=== PATIENT | male | born 1965 | race Caucasian/White ===

== ENCOUNTER 2025-04-30 07:55 | Outpatient (CLI) | payer OTHER, SELFPAY ==
--- OUTSIDE RECORDS SUMMARY | 2025-04-30 07:59 | XMS_ITS | Clinical Summary ---
Author Organization [facility] Address [address] [place] [address] Care Team Providers Care Sulphate Tester Name Role Phone Unavailable Primary Care Provider Unavailabl e Source Comments [facility],non-owned Affiliates and Associated Physician Practices is amultiple site organization consisting of ambulatory clinics and hospital sitesin [place], [place], [place] and [place]. This disclosure is being madepursuant to the Care Everywhere program and may not contain all information available regarding this patient. Last updated 18.[facility] Social History Tobacco Use Types Packs/Day Years Used Date Smoking Tobacco: Never Assessed Sex and Gender Information Value Date Recorded Sex Assigned at Not on file Legal Sex Male 5:00 PM CDT Gender Identity Not on file Sexual Orientation Not on file Plan of Treatment Health Maintenance Due Date Last Done Comments COLOGUARD (AGES 45-75) - COL ON CA SCREENING 1964 COLON MONITORING 1964 COLONOSCOPY - COLON CA SCREENING 1964 CT COLONOGRAPHY - COLON CA SCREENING 1964 Colorectal Cancer Screening 1964 FIT - COLON CA SCREENING 1964 FLEX SIG - COLON CA SCREENING 1964 LIPID TESTING 1964 HIV SCREENING 1979 HEPATITIS C SCREENING 05/08/1982 DTAP/TDAP/TD VACCINES (1 - Tdap) 1983 PNEUMOCOCCAL VACCINE 50+ (1 of 1 - PCV) 2014 ZOSTER VACCINE (1 of 2) 2014 COVID-19 VACCINE ( - 2023-2 5 season) 2024 DEPRESSION SCREENING 09/17/2024 INFLUENZA VACCINE (#1) 2025 Respiratory Syncytial Virus (RSV) Vaccine Pt: or over 60 yrs (1 - 1-dose 75+ series) 2039 HEPATITIS B VACCINE Aged Out No longe r eligible based on patient's age to complete this topic HIB VACCINE Aged Out No longer eligi ble based on patient's age to complete this topic HPV VACCINE Aged Out No longer eligi ble based on patient's age to complete this topic MENINGOCOCCAL (Group B) VACC INE SHARED DECISION-MAKING Aged Out No longer eligibl e based on patient's age to complete this topic MENINGOCOCCAL GROUPS A/C/Y/W VACCINE Aged Out No longer eligible b ased on patient's age to complete this topic Insurance
--- OUTSIDE RECORDS SUMMARY | 2025-04-30 07:59 | XMS_ITS | Encounter Summary ---
Author Organization [facility] Address [address] [place] [address] Care Team Providers Care Recreational Counselor Name Role Phone Unavailable Primary Care Provider Unavailabl e Encounter Details Date Type Department Care Team (Late st Contact Info) Description 04/10/2023 Lab Requisition [facility] - Derm[facility] Lab [address], [place] [id number] Christine Hernandez PA-C [address] [place] [phone] Neoplasm of uncertain behavior of skin Social History Tobacco Use Types Packs/Day Years Used Date Smoking Tobacco: Never Assessed Sex and Gender Information Value Date Recorded Sex Assigned at Not on file Legal Sex Male 5:00 PM CDT Gender Identity Not on file Sexual Orientation Not on file documented as of this encounter Plan of Treatment Not on file documented as of this encounter Procedures Procedure Name Priority Date/Time Associated Diagnosis Comments DERMATOPATHOLOGY Routine 04/10/2023 12:0 0 AM CDT Neoplasm of uncertain behavior of skin documented in this encounter Results * DERMATOPATHOLOGY (04/10/2023 12:00 AM CDT) Case Report Dermatopathology Report Case: [id number] Authorizing Provider: Christine Hernandez, Collected: 04/10/2023 12:00 AM HUBER Ordering Location: [facility] Lab Received: 04/11/2023 02:15 PM Pathologist: Izzy Huff MD Specimen: Skin, left nasal tip 4:06 PM CDT DERMATOPATHOLOGY LABORATORY Final Diagnosis Specimen A. SKIN, left nasal tip: HYPERPLASTIC (HYPERTROPHIC) ACTINIC KERATOSIS; EXTENDING TO THE BASE OF THE SPECIMEN (L57.0) (see microscopic description and comment) 3 4:06 PM CDT DERMATOPATHOLOGY LABORATORY at 1606 CDT Clinical History Basal Cell Carcinoma 3 4:06 PM CDT DERMATOPATHOLOGY LABORATORY Gross Description Specimen A: Received is one formalin filled container labeled with the patient's name and designated left nasal tip. The specimen consists of a shave biopsy measuring 6x6x1 mm. Jar 0. 3 4:06 PM CDT DERMATOPATHOLOGY LABORATORY Microscopic Description Specimen A. SKIN, left nasal tip: There is hyperkeratosis alternating with parakeratosis. There is epidermal hyperplasia with disorderly maturation of keratinocytes with nuclear pleomorphism confined to the lower half of the epidermis. This process extends to the base of the specimen. COMMENT: An underlying carcinoma cannot be ruled out. 3 4:06 PM CDT DERMATOPATHOLOGY LABORATORY Disclaimer An external and internal positive and negative controls are appropriate for the histochemical, immunohistochemical and immunofluorescence stain(s) in this case (if any), except where stated explicitly. The performance characteristics of the stain(s) cited in this report were developed and its performance characteristic determined by the Dermatopathology Laboratory at [facility], directed by Dr. Penny Sin. These tests need not be, and therefore are not, approved by the [place] Food and Drug Administration. The tests are used for clinical purposes. Billing Codes Specimen Charges Stain Charges 37361 1 3 4:06 PM CDT DERMATOPATHOLOGY LABORATORY Embedded Images 3 4:06 PM CDT DERMATOPATHOLOGY LABORATORY Pathology/Cytolog y TISSUE SPECIMEN FROM SKIN / Unknown 04/10/2023 04/11/2023 2:15 PM CDT Christine Hrenandez PA-C LAB - PATHOLOGY/CYTO LOGY ORDERABLES Final Result DERMATOPATHOLOGY LABORATORY [facility] - Department of Dermatology [address], [address] [phone] documented in this encounter Visit Diagnoses Diagnosis Neoplasm of uncertain behavior of skin documented in this encounter
--- OUTSIDE RECORDS SUMMARY | 2025-04-30 07:59 | XMS_ITS | Clinical Summary ---
Author Organization [facility] Address [address] [place] [id number] Care Team Providers Care Sheet Metal Layout Mechanic Name Role Phone Unavailable Primary Care Provider Unavailabl e Social History Tobacco Use Types Packs/Day Years Used Date Smoking Tobacco: Never Assessed Sex and Gender Information Value Date Recorded Sex Assigned at Not on file Legal Sex Male 7:41 PM CDT Gender Identity Not on file Sexual Orientation Not on file Plan of Treatment Health Maintenance Due Date Last Done Comments Colorectal Cancer Screening Colonoscopy (10 Years) 1964 Annual Physical 1967 Hepatitis C 1982 DTaP, Tdap and Td Vaccines ( 1 - Tdap) 1983 Pneumococcal Vaccine: 50+ Ye ars (1 of 1 - PCV) 2014 Zoster Vaccines (1 of 2) 2014 COVID-19 Vaccine ( - 2023-2 5 season) 2024 RSV Immunization or 60+ Years (1 - 1-dose 75+ series) 2039 Meningococcal B Vaccine Aged Out No l onger eligible based on patient's age to complete this topic Meningococcal Vaccine Aged Out No brent reginald eligible based on patient's age to complete this topic RSV Immunizations Under 20 Months Aged Out No longer eligible based on patient's age to complete this topic
--- OUTSIDE RECORDS SUMMARY | 2025-04-30 07:59 | XMS_ITS | Continuity of Care Document ---
Author Name [facility] Organization [facility] Care Team Providers Care Business Office Director Name Role Phone [facility] Unavailable Unavailable Problems Combined list of problems from Department of Defense and Veterans Affairs facilities. It does not include entries that were removed or entered in error. 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 DoD HEARING LOSS Active Condition DoD X-Ray Active Condition DoD insomnia Active Condition DoD X-Ray Chest Lungs Solitary Pulmonary Nodule (___ cm) Active Condition DoD visit for: services physical care home Active Condition DoD joint pain, localized in the shoulder Active Condition DoD CERVICALGIA Active Condition DoD joint stiffness of the shoulder Active Condition DoD NECK SPRAIN Inactive Condition DoD cough Active Condition DoD PRESBYOPIA Active Condition DoD ASTIGMATISM Active Condition 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 [facility] visit for: services flight physical Active Condition DoD HERPES ZOSTER (SHINGLES) Active Condition - slow recovery , still w/ acute pain- pt completed 7 d course of Valtrex- will give pt 5 d course of Prednisone to prevent post-herpetic neuralgia- will also refill Vicodin- discussed that shingles is only transmittable by skin to skin contact, and those at risk are people who have not had chickenpox or the varicella shot DoD PATELLOFEMORAL SYNDROME Active Condition DoD joint pain, localized in the knee Active Condition [facility] visit for: administrative purpose Active Condition [facility] visit for: laboratory Inactive Condition Pt instructed o n fasting 10-12 hours w/ nothing except water prior to having the lab test completed. Pt instructed to go directly to the lab in 6 mths to have repeat test done. Pt verbalized understanding. DoD visit for: screening exam hypertension Active Condition Pt was here for his 4/5 bp check. Pts bp was 127/82 on his right arm using the adult size cuff. Pt stated he was feeling fine today. Pt denied any lightheadedness, vertigo, chest pain, tingling in left arm or fingers, n/v and blurry vision. Pt was counseled on procedures for an emergency. DoD Blood Pressure Isolated Elevated Active Condition DoD Preventive Medicine Estab Patient Checkup Adult 40-64 Inactive Condition DoD ACUTE BRONCHITIS Inactive Condition DoD visit for: services physical Inactive Condition DoD CHALAZION LEFT EYE Active Condition I mproved with Dicloxicillin and warm compresses DoD CHALAZION Active Condition L upper lid DoD STYE (HORDEOLUM EXTERNUM) Inactive Condition Renewed drops. Optometry referral as may need lanced due to persistence. DoD ROSACEA Active Condition DoD WARTS PLANTAR Active Condition Wart p ared w/ 15 blade and then treated w/ cryo freeze and thaw x 2. Patient aware of healing process. F/u in two weeks for repeat treatment; expect will need at least 1-2 more treatments w/ large size of lesion. DoD TENDONITIS SHOULDER Active Condition HANDOUT GIVEN DISCUSSING SHOULDER EXERCISES. WIILL TRY SYMPTOMATIC CARE AND REASSESS DoD Other Physical Therapy Active Condition DoD NONALLOPATHIC LESIONS LUMBAR Active Condition DoD Patient Education - Injury Prevention Inactive Condition DoD LUMBAGO Active Condition DoD Medications Combined list of outpatient medications from Department of Defense and Veterans Affairs facilities.Medications provided include 1) outpatient medications from the last 15 months, and 2) patient-reported medications. Medication Details Route Status Patient Instructions Prescription Expires Prescription Number Last Dispense Date Ordering Provider Order Date Order Qty Source clobetasol 0.05% topical ointment APPLY TO AFFECTED AREAS TWICE A DAY FOR 2 TO 3 WEEKS THEN DAILY NEEDED FOR FLARES., # 60 g, 3 total refill(s ), Acute Complet ed 12/27/2023 3 2023 60.0 Ambulat ory Pharmac y rosuvastati n 5 mg tablet 5 mg, Oral, Daily, # 90 EA, 2 total refill(s ), Hard Stop Oral (given by mouth) Complet ed 02/19/2024 3 2023 90.0 Ambulat ory Pharmac y TALTZ AUTOINJECTO R (3 PACK) (ixekizumab ), 80 MG/ML, AUTO INJCT, SUBCUT, NOE KIRK [employer] 1 ml SYRINGE Cancele d [id number] : 2023 0 Pharmac y Data Transac tion Service Facilit y TALTZ AUTOINJECTO R (3 PACK) (ixekizumab ), 80 MG/ML, AUTO INJCT, SUBCUT, NOE [employer] 1 ml SYRINGE Cancele d [id number] : 2023 0 Pharmac y Data Transac tion Service Facilit y TALTZ AUTOINJECTO R (3 PACK) (ixekizumab ), 80 MG/ML, AUTO INJCT, SUBCUT, NOE [employer] 1 ml SYRINGE Active [id number] 2023 3 Pharmac y Data Transac tion Service Facilit y TALTZ AUTOINJECTO R (3 PACK) (ixekizumab ), 80 MG/ML, AUTO INJCT, SUBCUT, NOE [employer] 1 ml SYRINGE Active [id number] 2023 3 Pharmac y Data Transac tion Service Facilit y urea 40% topical cream APPLY TO FEET ONCE DAILY FOR 2 TO 3 MONTHS, THEN NEEDED, # 199 g, 2 total refill(s ), Acute Complet ed 12/27/2023 3 2023 199.0 Ambulat ory Pharmac y Allergies, Adverse Reactions, Alerts Combined list of allergies from Department of Defense and Veterans Affairs facilities. It does not include entries that were removed or entered in error. Substance Category Reaction Severity Reaction type Status Date Reported Comments Source NO OUTPUT FOR NCID [id number] Drug allergy (disorder) active 04/17/2008 [facility] [place] ([facility]) Immunizations Combined list of available immunizations from the Department of Defense and Veterans Affairs facilities. Immunization Series Date Given Administered By Site Reaction Lot Number CVX Code Drug Layout Designer Status Comments Source COVID Vaccine Moderna 2020 Dinh t Arm [id number] complet ed COVID Vaccine Moderna 09/02/21 Given Ambulat ory Pharmac y COVID Vaccine Moderna 2020 [id number] complet ed COVID Vaccine Moderna 09/02/21 Given Ambulat ory Pharmac y SARS-COV-2 (COVID-19) vaccine, mRNA, spike protein, LNP, preservative free, 100 mcg or 50 mcg dose 3 2020 Unknown, Provider [id number] 207 Moderna [employer] (MOD) complet ed SARS-COV- 2 (COVID-19 ) vaccine, mRNA, spike protein, LNP, preservat hina free, 100 mcg or 50 mcg dose DoD COVID Vaccine Moderna 2020 zzRig ht Arm [id number] 207 complet ed COVID Vaccine Moderna 10/29/20 Given Ambulat ory Pharmac y COVID Vaccine Moderna 2020 [id number] complet ed COVID Vaccine Moderna 10/29/20 Given Ambulat ory Pharmac y SARS-COV-2 (COVID-19) vaccine, mRNA, spike protein, LNP, preservative free, 100 mcg or 50 mcg dose 2 2020 Unknown, Provider [id number] 207 Moderna [employer] (MOD) complet ed SARS-COV- 2 (COVID-19 ) vaccine, mRNA, spike protein, LNP, preservat hina free, 100 mcg or 50 mcg dose DoD COVID Vaccine Moderna 2020 zzRig ht Arm [id number] 207 complet ed COVID Vaccine Moderna 10/01/20 Given Ambulat ory Pharmac y COVID Vaccine Moderna 2020 [id number] complet ed COVID Vaccine Moderna 10/01/20 Given Ambulat ory Pharmac y SARS-COV-2 (COVID-19) vaccine, mRNA, spike protein, LNP, preservative free, 100 mcg or 50 mcg dose 1 2020 Unknown, Provider [id number] 207 Moderna [place], Inc[employer] (MOD) complet ed SARS-COV- 2 (COVID-19 ) vaccine, mRNA, spike protein, LNP, preservat hina free, 100 mcg or 50 mcg dose DoD influenza, seasonal, injectable 2010 zzLef t Arm [id number] 141 sanofi pasteur complet ed influenza , seasonal, injectabl e 06/28/11 Given Ambulat ory Pharmac y influenza, seasonal, injectable 2010 [id number] 141 sanofi pasteur complet ed influenza , seasonal, injectabl e 06/28/11 Given Ambulat ory Pharmac y Influenza, seasonal, injectable 1 2010 Unknown, Provider [id number] 141 Sanofi Pasteur ([facility]) complet ed Influenza , seasonal, injectabl e DoD Novel influenza-H1N 1-09, injectable 2009 [id number] 1 127 Novartis Pharm[employer]ica ls complet ed Novel influenza -[id number], injectabl e 10/05/09 Given Ambulat ory Pharmac y Novel influenza-H1N 1-09, injectable 2009 [id number] 1 127 Novartis Pharmaceut[employer] ls complet ed Novel influenza -[id number], injectabl e 10/05/09 Given Ambulat ory Pharmac y Novel influenza-H1N 1-09, injectable 1 2009 [id number] 1 127 Novartis Pharmaceutica l Kirsty. (NOV) complet ed Novel influenza -[id number], injectabl e DoD influenza virus vaccine, live 2008 [id number] 111 Medimmune Inc complet ed influenza virus vaccine, live 07/12/09 Given Ambulat ory Pharmac y influenza virus vaccine, live 2008 [id number] 111 [employer] Inc complet ed influenza virus vaccine, live 07/12/09 Given Ambulat ory Pharmac y influenza virus vaccine, live, attenuated, for intranasal use 1 2008 [id number] 111 [employer] (MED) complet ed influenza virus vaccine, live, attenuate d, for intranasa l use DoD hepatitis B adult vaccine 2008 [id number] 0AA 43 GlaxoSmithKli ne complet ed hepatitis B adult vaccine 12/22/08 Given Ambulat ory Pharmac y anthrax vaccine 2008 [id number] [employer] complet ed anthrax vaccine 12/22/08 Given Ambulat ory Pharmac y anthrax vaccine 2008 [id number] [employer] complet ed anthrax vaccine 12/22/08 Given Ambulat ory Pharmac y hepatitis B adult vaccine 2008 [id number] 0aa 43 GlaxoSmithKli ne complet ed hepatitis B adult vaccine 12/22/08 Given Ambulat ory Pharmac y anthrax vaccine 4 2008 [id number] 24 [employer] [place] (MIP) complet ed anthrax vaccine DoD hepatitis B vaccine, adult dosage 3 2008 [id number] 0AA 43 [place] (SKB) complet ed hepatitis B vaccine, adult dosage DoD tetanus, diphtheria, acellular pertu is 2007 [id number] 115 sanofi pasteur complet ed tetanus, diphtheri a, acellular pertussis 08/14/08 Given Ambulat ory Pharmac y tetanus, diphtheria, acellular pertu is 2007 [id number] 115 sanofi pasteur complet ed tetanus, diphtheri a, acellular pertussis 08/14/08 Given Ambulat ory Pharmac y tetanus toxoid, reduced diphtheria toxoid, and acellular pertu is vaccine, adsorbed 0 2007 [id number] 115 Sanofi Pasteur (PMC) complet ed tetanus toxoid, reduced diphtheri a toxoid, and acellular pertussis vaccine, adsorbed DoD hepatitis B adult vaccine 2007 [id number] 0AA 43 GlaxoSmithKli ne complet ed hepatitis B adult vaccine 07/24/08 Given Ambulat ory Pharmac y hepatitis B adult vaccine 2007 [id number] 0AA 43 GlaxoSmithKli ne complet ed hepatitis B adult vaccine 07/24/08 Given Ambulat ory Pharmac y hepatitis B vaccine, adult dosage 2 2007 [id number] 0AA 43 [employer] (SKB) complet ed hepatitis B vaccine, adult dosage DoD vaccinia (smallpox) vaccine 2007 VV04-00 3A 75 [employer] complet ed vaccinia (smallpox ) vaccine 06/18/08 Given Ambulat ory Pharmac y influenza virus vaccine, live 2007 [id number] 111 [employer] comple t ed influenza virus vaccine, live 06/18/08 Given Ambulat ory Pharmac y anthrax vaccine 2007 [id number] 24 [employer] complet ed anthrax vaccine 06/18/08 Given Ambulat ory Pharmac y vaccinia (smallpox) vaccine 2007 VV04-00 3A 75 [employer] complet ed vaccinia (smallpox ) vaccine 06/18/08 Given Ambulat ory Pharmac y anthrax vaccine 2007 [id number] 24 [employer] complet ed anthrax vaccine 06/18/08 Given Ambulat ory Pharmac y influenza virus vaccine, live 2007 [id number] 111 [employer] comple t ed influenza virus vaccine, live 06/18/08 Given Ambulat ory Pharmac y anthrax vaccine 4 2007 [id number] 24 [employer] [place] (MIP) complet ed anthrax vaccine DoD vaccinia (smallpox) vaccine 2 2007 VV04-00 3A 75 [facility] ([facility] complet ed vaccinia (smallpox ) vaccine DoD influenza virus vaccine, live, attenuated, for intranasal use 1 2007 [id number] 111 MedImmune, Inc. (MED) complet ed influenza virus vaccine, live, attenuate d, for intranasa l use DoD typhoid Vi capsular polysaccharid e vac 2007 [id number] 101 sanofi pasteur complet ed typhoid Vi capsular polysacch aride vac 06/15/08 Given Ambulat ory Pharmac y hepatitis B adult vaccine 2007 [id number] 6CA 43 GlaxoSmithKli ne complet ed hepatitis B adult vaccine 06/15/08 Given Ambulat ory Pharmac y typhoid Vi capsular polysaccharid e vac 2007 [id number] 101 sanofi pasteur complet ed typhoid Vi capsular polysacch aride vac 06/15/08 Given Ambulat ory Pharmac y hepatitis B adult vaccine 2007 [id number] 6CA 43 GlaxoSmithKli ne complet ed hepatitis B adult vaccine 06/15/08 Given Ambulat ory Pharmac y hepatitis B vaccine, adult dosage 1 2007 [id number] 6CA 43 [employer] (SKB) complet ed hepatitis B vaccine, adult dosage DoD typhoid Vi capsular polysaccharid e vaccine 1 2007 [id number] 101 Sanofi Pasteur ([facility]) complet ed typhoid Vi capsular polysacch aride vaccine DoD influenza virus vaccine, live 2007 [id number] 111 Medimmune Inc comple t ed influenza virus vaccine, live 09/23/07 Given Ambulat ory Pharmac y influenza virus vaccine, live, attenuated, for intranasal use 1 2007 [id number] 111 MedImmune, Inc. (MED) complet ed influenza virus vaccine, live, attenuate d, for intranasa l use DoD influenza virus vaccine,split 2005 [id number] 15 GlaxoSmithKli ne complet ed influenza virus vaccine,s plit 08/30/06 Given Ambulat ory Pharmac y influenza virus vaccine,split 2005 [id number] 3BA 15 GlaxoSmithKli ne complet ed influenza virus vaccine,s plit 08/30/06 Given Ambulat ory Pharmac y influenza virus vaccine, split virus (incl. purified surface antigen)-reti red CODE 1 2005 [id number] 15 [employer] (SKB) complet ed influenza virus vaccine, split virus (incl. purified surface antigen)- retired CODE DoD influenza virus vaccine,split 2004 [id number] 15 sanofi pasteur complet ed influenza virus vaccine,s plit 08/18/05 Given Ambulat ory Pharmac y influenza virus vaccine,split 2004 [id number] 15 sanofi pasteur complet ed influenza virus vaccine,s plit 08/18/05 Given Ambulat ory Pharmac y influenza virus vaccine, split virus (incl. purified surface antigen)-reti red CODE 1 2004 [id number] 15 Sanofi Pasteur ([facility]) complet ed influenza virus vaccine, split virus (incl. purified surface antigen)- retired CODE DoD influenza virus vaccine,split 2004 [id number] 15 sanofi pasteur complet ed influenza virus vaccine,s plit 09/28/04 Given Ambulat ory Pharmac y influenza virus vaccine, split virus (incl. purified surface antigen)-reti red CODE 0 2004 [id number] 15 Sanofi Pasteur ([facility]) complet ed influenza virus vaccine, split virus (incl. purified surface antigen)- retired CODE DoD influenza virus vaccine, whole virus 2002 [id number] 16 Nov[employer]is Pharm[employer] ls complet ed influenza virus vaccine, whole virus 06/25/03 Given Ambulat ory Pharmac y influenza virus vaccine, whole virus 2002 [id number] 16 Novartis Pharm[employer] ls complet ed influenza virus vaccine, whole virus 06/25/03 Given Ambulat ory Pharmac y influenza virus vaccine, whole virus 0 2002 [id number] 16 [employer] (PWJ) complet ed influenza virus vaccine, whole virus DoD influenza virus vaccine, whole virus 2001 [id number] 16 sanofi pasteur complet ed influenza virus vaccine, whole virus 08/12/02 Given Ambulat ory Pharmac y influenza virus vaccine, whole virus 2001 [id number] 16 sanofi pasteur complet ed influenza virus vaccine, whole virus 08/12/02 Given Ambulat ory Pharmac y influenza virus vaccine, whole virus 0 2001 [id number] 16 Sanofi Pasteur ([facility]) complet ed influenza virus vaccine, whole virus DoD typhoid Vi capsular polysaccharid e vac 2001 [id number] 101 sanofi pasteur complet ed typhoid Vi capsular polysacch aride vac 02/04/02 Given Ambulat ory Pharmac y typhoid Vi capsular polysaccharid e vac 2001 [id number] 101 sanofi pasteur complet ed typhoid Vi capsular polysacch aride vac 02/04/02 Given Ambulat ory Pharmac y typhoid Vi capsular polysaccharid e vaccine 0 2001 [id number] 101 Sanofi Pasteur (PMC) complet ed typhoid Vi capsular polysacch aride vaccine DoD influenza virus vaccine, whole virus 2000 [id number] 16 sanofi pasteur complet ed influenza virus vaccine, whole virus 08/06/01 Given Ambulat ory Pharmac y influenza virus vaccine, whole virus 0 2000 [id number] 16 Sanofi Pasteur (PMC) complet ed influenza virus vaccine, whole virus DoD tuberculin purified protein derivative 2000 zzLef t Arm [id number] 96 sanofi pasteur complet ed Patient Tolerance : Negative Ambulat ory Pharmac y tuberculin purified protein derivative 2000 [id number] 96 sanofi pasteur complet ed tuberculi n purified protein derivativ e 05/01/01 Given Ambulat ory Pharmac y tuberculin skin test; purified protein derivative solution, intradermal 1 2000 Unknown, Provider [id number] Sanofi Pasteur (PMC) complet ed tuberculi n skin test; purified protein derivativ e solution, intraderm al DoD influenza virus vaccine, whole virus 2000 [id number] 16 [facility] complet ed influenza virus vaccine, whole virus 11/02/00 Given Ambulat ory Pharmac y influenza virus vaccine, whole virus 2000 [id number] 16 [facility] complet ed influenza virus vaccine, whole virus 11/02/00 Given Ambulat ory Pharmac y influenza virus vaccine, whole virus 0 2000 [id number] [facility] complet ed influenza virus vaccine, whole virus DoD influenza virus vaccine, whole virus 1998 16 complet ed influenza virus vaccine, whole virus 07/14/99 Given Ambulat ory Pharmac y influenza virus vaccine, whole virus 1998 16 complet ed influenza virus vaccine, whole virus 07/14/99 Given Ambulat ory Pharmac y influenza virus vaccine, whole virus 0 1998 16 () complet ed influenza virus vaccine, whole virus DoD anthrax vaccine 1998 [id number] [employer] complet ed anthrax vaccine 06/20/99 Given Ambulat ory Pharmac y anthrax vaccine 1998 [id number] 24 [employer] complet ed anthrax vaccine 06/20/99 Given Ambulat ory Pharmac y anthrax vaccine 3 1998 [id number] 24 [employer] [place] ([facility]) complet ed anthrax vaccine DoD anthrax vaccine 1998 [id number] 24 [employer] complet ed anthrax vaccine 06/06/99 Given Ambulat ory Pharmac y anthrax vaccine 1998 [id number] 24 [employer] complet ed anthrax vaccine 06/06/99 Given Ambulat ory Pharmac y anthrax vaccine 2 1998 [id number] 24 [employer] [place] ([facility]) complet ed anthrax vaccine DoD meningococcal polysaccharid e (MPSV4) [id number] 32 [employer] complet ed meningoco ccal polysacch aride (MPSV4) 05/20/99 Given Ambulat ory Pharmac y yellow fever vaccine 1998 [id number] [employer] complet ed yellow fever vaccine 05/20/99 Given Ambulat ory Pharmac y anthrax vaccine 1998 [id number] 24 [employer] complet ed anthrax vaccine 05/20/99 Given Ambulat ory Pharmac y meningococcal polysaccharid e (MPSV4) [id number] 32 [employer] complet ed meningoco ccal polysacch aride (MPSV4) 05/20/99 Given Ambulat ory Pharmac y yellow fever vaccine 1998 [id number] [employer] complet ed yellow fever vaccine 05/20/99 Given Ambulat ory Pharmac y anthrax vaccine 1 1998 [id number] [employer] [place] ([facility]) complet ed anthrax vaccine DoD meningococcal polysaccharid e vaccine (MPSV4) 0 [id number] 32 [place] (CON) complet ed meningoco ccal polysacch aride vaccine (MPSV4) DoD yellow fever vaccine 0 1998 [id number] 37 [employer] (CON) complet ed yellow fever vaccine DoD typhoid vaccine, inactivated 1998 [id number] 101 [employer] complet ed typhoid vaccine, inactivat ed 05/13/99 Given Ambulat ory Pharmac y typhoid vaccine, inactivated 1998 [id number] 101 [employer] complet ed typhoid vaccine, inactivat ed 05/13/99 Given Ambulat ory Pharmac y typhoid vaccine, parenteral, other than acetone-kille d, dried 0 1998 [id number] 41 [place] (CON) complet ed typhoid vaccine, parentera l, other than acetone-k illed, dried DoD tuberculin purified protein derivative 1998 96 complet ed Patient Tolerance : Negative Ambulat ory Pharmac y hepatitis A adult vaccine 1998 [id number] 52 [employer] complet ed hepatitis A adult vaccine 05/11/99 Given Ambulat ory Pharmac y hepatitis A adult vaccine 1998 [id number] 52 [employer] complet ed hepatitis A adult vaccine 05/11/99 Given Ambulat ory Pharmac y hepatitis A vaccine, adult dosage 2 1998 [id number] 52 Merck (MSD) complet ed hepatitis A vaccine, adult dosage DoD tuberculin skin test; purified protein derivative solution, intradermal 1 1998 Unknown, Provider 96 () complet ed tuberculi n skin test; purified protein derivativ e solution, intraderm al DoD hepatitis A adult vaccine 1997 [id number] 52 [employer] complet ed hepatitis A adult vaccine 08/05/98 Given Ambulat ory Pharmac y tetanus-dipht h toxoids (Td) adult/adol 1997 [id number] 09 [employer] complet ed tetanus-d iphth toxoids (Td) adult/ado l 08/05/98 Given Ambulat ory Pharmac y tetanus-dipht h toxoids (Td) adult/adol 1997 [id number] 09 [employer] complet ed tetanus-d iphth toxoids (Td) adult/ado l 08/05/98 Given Ambulat ory Pharmac y hepatitis A adult vaccine 1997 [id number] 52 [employer] complet ed hepatitis A adult vaccine 08/05/98 Given Ambulat ory Pharmac y tetanus and diphtheria toxoids, adsorbed, preservative free, for adult use (2 Lf of tetanus toxoid and 2 Lf of diphtheria toxoid) 0 1997 [id number] 09 Juan (KAUR) comple t ed tetanus and diphtheri a toxoids, adsorbed, preservat hina free, for adult use (2 Lf of tetanus toxoid and 2 Lf of diphtheri a toxoid) DoD hepatitis A vaccine, adult dosage 1 1997 [id number] 52 Merck (MSD) complet ed hepatitis A vaccine, adult dosage DoD influenza virus vaccine, whole virus [id number] [employer] complet ed influenza virus vaccine, whole virus 07/02/98 Given Ambulat ory Pharmac y influenza virus vaccine, whole virus 0 19978065 [id number] 16 Angel (Inactive) ([place]) complet ed influenza virus vaccine, whole virus DoD influenza virus vaccine, whole virus 1996 [id number] 16 [facility] complet ed influenza virus vaccine, whole virus 07/08/97 Given Ambulat ory Pharmac y influenza virus vaccine, whole virus 1996 [id number] 16 [facility] complet ed influenza virus vaccine, whole virus 07/08/97 Given Ambulat ory Pharmac y influenza virus vaccine, whole virus 0 1996 [id number] 16 [facility] (CON) complet ed influenza virus vaccine, whole virus DoD influenza virus vaccine, whole virus 1996 16 complet ed influenza virus vaccine, whole virus 07/02/97 Given Ambulat ory Pharmac y influenza virus vaccine, whole virus 1996 16 complet ed influenza virus vaccine, whole virus 07/02/97 Given Ambulat ory Pharmac y influenza virus vaccine, whole virus 0 1996 16 () complet ed influenza virus vaccine, whole virus DoD tuberculin purified protein derivative 1995 96 complet ed tuberculi n purified protein derivativ e 12/09/95 Given Ambulat ory Pharmac y yellow fever vaccine 1988 37 complet ed yellow fever vaccine 08/15/89 Given Ambulat ory Pharmac y yellow fever vaccine 1988 37 complet ed yellow fever vaccine 08/15/89 Given Ambulat ory Pharmac y yellow fever vaccine 1 1988 37 (MV) complet ed yellow fever vaccine DoD typhoid, parenteral, AKD 1988 53 complet ed typhoid, parentera l, AKD 08/04/89 Given Ambulat ory Pharmac y typhoid, parenteral, AKD 1988 53 complet ed typhoid, parentera l, AKD 08/04/89 Given Ambulat ory Pharmac y typhoid vaccine, parenteral, acetone-kille d, dried ([place] ) 1 1988 53 (MV) complet ed typhoid vaccine, parentera l, acetone-k illed, dried ([place] ) DoD tuberculin purified protein derivative 1988 96 complet ed Patient Tolerance : Negative Ambulat ory Pharmac y tuberculin purified protein derivative 1988 96 complet ed tuberculi n purified protein derivativ e 03/04/89 Given Ambulat ory Pharmac y tuberculin skin test; purified protein derivative solution, intradermal 1 1988 Unknown, Provider 96 () complet ed tuberculi n skin test; purified protein derivativ e solution, intraderm al [facility] poliovirus vaccine, live, oral 1986 02 complet ed polioviru s vaccine, live, oral 06/10/87 Given Ambulat ory Pharmac y poliovirus vaccine, live, oral 1986 02 complet ed polioviru s vaccine, live, oral 06/10/87 Given Ambulat ory Pharmac y trivalent poliovirus vaccine, live, oral 3 1986 02 (MV) complet ed trivalent polioviru s vaccine, live, oral DoD typhoid, parenteral, AKD 1986 53 complet ed typhoid, parentera l, AKD 03/10/87 Given Ambulat ory Pharmac y typhoid, parenteral, AKD 1986 53 complet ed typhoid, parentera l, AKD 03/10/87 Given Ambulat ory Pharmac y typhoid vaccine, parenteral, acetone-kille d, dried (U.S. ) 2 1986 53 (MV) complet ed typhoid vaccine, parentera l, acetone-k illed, dried ([place].S. ) [facility] poliovirus vaccine, live, oral 1986 02 complet ed polioviru s vaccine, live, oral 02/07/87 Given Ambulat ory Pharmac y typhoid, parenteral, AKD 1986 53 complet ed typhoid, parentera l, AKD 02/07/87 Given Ambulat ory Pharmac y typhoid, parenteral, AKD 1986 53 complet ed typhoid, parentera l, AKD 02/07/87 Given Ambulat ory Pharmac y trivalent poliovirus vaccine, live, oral 0 1986 02 (MV) complet ed trivalent polioviru s vaccine, live, oral DoD typhoid vaccine, parenteral, acetone-kille d, dried (U.S. ) 1 1986 53 (MV) complet ed typhoid vaccine, parentera l, acetone-k illed, dried (U.S. ) DoD vaccinia (smallpox) vaccine 1986 75 complet ed vaccinia (smallpox ) vaccine 01/30/87 Given Ambulat ory Pharmac y vaccinia (smallpox) vaccine 1986 75 complet ed vaccinia (smallpox ) vaccine 01/30/87 Given Ambulat ory Pharmac y vaccinia (smallpox) vaccine 1 1986 75 (MV) complet ed vaccinia (smallpox ) vaccine DoD poliovirus vaccine, live, oral 1986 02 complet ed polioviru s vaccine, live, oral 12/08/86 Given Ambulat ory Pharmac y poliovirus vaccine, live, oral 1986 02 complet ed polioviru s vaccine, live, oral 12/08/86 Given Ambulat ory Pharmac y trivalent poliovirus vaccine, live, oral 0 1986 02 (MV) complet ed trivalent polioviru s vaccine, live, oral DoD tetanus-dipht h toxoids (Td) adult/adol 1986 09 complet ed tetanus-d iphth toxoids (Td) adult/ado l 11/16/86 Given Ambulat ory Pharmac y tetanus-dipht h toxoids (Td) adult/adol 1986 09 complet ed tetanus-d iphth toxoids (Td) adult/ado l 11/16/86 Given Ambulat ory Pharmac y tetanus and diphtheria toxoids, adsorbed, preservative free, for adult use (2 Lf of tetanus toxoid and 2 Lf of diphtheria toxoid) 0 1986 09 (MV) complet ed tetanus and diphtheri a toxoids, adsorbed, preservat hina free, for adult use (2 Lf of tetanus toxoid and 2 Lf of diphtheri a toxoid) DoD tetanus-dipht h toxoids (Td) adult/adol 1986 09 complet ed tetanus-d iphth toxoids (Td) adult/ado l 11/10/86 Given Ambulat ory Pharmac y tetanus and diphtheria toxoids, adsorbed, preservative free, for adult use (2 Lf of tetanus toxoid and 2 Lf of diphtheria toxoid) 1 1986 09 (MV) complet ed tetanus and diphtheri a toxoids, adsorbed, preservat hina free, for adult use (2 Lf of tetanus toxoid and 2 Lf of diphtheri a toxoid) DoD meningococcal polysaccharid e (MPSV4) 1986 32 complet ed meningoco ccal polysacch aride (MPSV4) 10/10/86 Given Ambulat ory Pharmac y tetanus-dipht h toxoids (Td) adult/adol 1986 09 complet ed tetanus-d iphth toxoids (Td) adult/ado l 10/10/86 Given Ambulat ory Pharmac y measles/mumps /rubella virus vaccine 1986 03 complet ed measles/m umps/rube lla virus vaccine 10/10/86 Given Ambulat ory Pharmac y tetanus-dipht h toxoids (Td) adult/adol 1986 09 complet ed tetanus-d iphth toxoids (Td) adult/ado l 10/10/86 Given Ambulat ory Pharmac y measles/mumps /rubella virus vaccine 1986 03 complet ed measles/m umps/rube lla virus vaccine 10/10/86 Given Ambulat ory Pharmac y meningococcal polysaccharid e (MPSV4) 1986 32 complet ed meningoco ccal polysacch aride (MPSV4) 10/10/86 Given Ambulat ory Pharmac y measles, mumps and rubella virus vaccine 1 1986 03 (MV) complet ed measles, mumps and rubella virus vaccine DoD tetanus and diphtheria toxoids, adsorbed, preservative free, for adult use (2 Lf of tetanus toxoid and 2 Lf of diphtheria toxoid) 0 1986 09 (MV) complet ed tetanus and diphtheri a toxoids, adsorbed, preservat hina free, for adult use (2 Lf of tetanus toxoid and 2 Lf of diphtheri a toxoid) [facility] meningococcal polysaccharid e vaccine (MPSV4) 1 1986 32 (MV) complet ed meningoco ccal polysacch aride vaccine (MPSV4) [facility] tuberculin purified protein derivative 1986 96 complet ed Patient Tolerance : Negative Ambulat ory Pharmac y tuberculin skin test; purified protein derivative solution, intradermal 1 1986 Unknown, Provider 96 () complet ed tuberculi n skin test; purified protein derivativ e solution, intraderm al DoD Encounters Combined list of: 1) Encounters from Department of Veterans Affairs facilities going backup to the last 18 months, not all VA inpatient encounters are included; 2) Encounters from the Department of Defense facilities going backup to 280 months. Location Location Details Encounter Type Encounter Number Reason For Visit Attending Provider ADM Date DC Date Status Disposition Source [address] [place] [address] [place] [facility]Pt Neuromusc uloskelet al Clinic) OUTPATIENT [id number] low back pain - chronic CLAY GOVEA 05/30 Released w/o Limitations [address] [place] [address] [place] [facility])(P t Neuromu sculosk eletal Clinic) [address] [place] [address] [place] [facility]Pt Neuromusc uloskelet al Clinic) OUTPATIENT [id number] TASNEEM ADEN 06/09 Released w/o Limitations [address] [place] [address] [place] [facility])(P t Neuromu sculosk eletal Clinic) [address] [place] [address] [place] [facility])(Pt Neuromusc uloskelet al Clinic) OUTPATIENT [id number] CLAY GOVEA 06/14 Released w/o Limitations [address] [place] [address] [place] [facility])(P t Neuromu sculosk eletal Clinic) [address] [place] [address] [place] [facility])([facility] tano Practice Non-GME FH) OUTPATIENT [id number] L shoulde r pain x 2 wks. JERICHO BRIGGS 12/27 Released w/o Limitations [address] [place] [address] [place] [facility])(F amily Practic e Non-GME FHI2) [address] [place] [address] [place] [facility])(Fam tano Practice Non-GME FHI2) OUTPATIENT [id number] corn on right foot toe NIKO WAITE E 05/24 Released w/o Limitations [address] [place] [address] [employer] [facility])(F amily Practic e Non-GME FHI2) [address] [place] [address] [employer] [facility] Non-GME FHI1) OUTPATIENT [id number] corn on right fourth toe TASNEEM NAYLOR R 06/13 Released w/o Limitations [address] [place] [address] [employer] [facility])(F amily Practic e Non-GME FHI1) [address] [place] [address] [employer] ([facility] Non-GME FHI1) OUTPATIENT [id number] left eye puff- 1 week JOHN KAYE 07/25 Released w/o Limitations [address] [place] [address] [employer] ([facility])(F amily Practic e Non-GME FHI1) [address] [place] [address] [employer] ([facility] Non-GME FHI1) OUTPATIENT [id number] stye in l eye and rash on face TASNEEM NYALOR Josafat 10/03 Released w/o Limitations [address] [place] [address] [employer] ([facility])(F amily Practic e Non-GME FHI1) [address] [place] [address] [employer] [facility])(Opt ometry) OUTPATIENT [id number] prt here from sick call for possibl e SAMARIA Zavaleta 10/03 Released w/o Limitations [address] [place] [address] [employer] ([facility])(O ptometr y) [address] [place] [address] [employer] ([facility])(Opt ometry) OUTPATIENT [id number] Follow- up for cyst left upper lid SAMARIA OZUNA 10/30 Released w/o Limitations [address] [place] [address] [employer] ([facility])(O ptometr y) [address] [place] [address] [employer] [facility])([facility] Non-GME FHI1) OUTPATIENT [id number] PHA JUAN LYNN 11/02 Released w/o Limitations [address] [place] [address] [employer] ([facility])(F amily Practic e Non-GME FHI1) [address] [place] [address] [employer] ([facility])([facility] Non-GME FHI1) OUTPATIENT [id number] Congest ion and sore throat JUAN LYNN 09/24 Sick at Home/[facility])(F amily Practic e Non-GME FHI1) [employer] [facility])([facility]) OUTPATIENT [id number] I am overdue for my PHA BILLIE DOBBS 04/09 Released w/o Limitations [employer] [place] [facility])([facility]) [employer] [facility])(Fam tano Practice Non-GME FHI1) OUTPATIENT [id number] bp check YAMILET POMPA 05/01 Released w/o Limitations [facility])(F amily Practic e Non-GME FHI1) [employer] [facility])(Fam tano Practice Non-GME FHI1) OUTPATIENT [id number] well man physica RAMON Dai 05/06 Released w/o Limitations [facility] [employer] [facility])(F amily Practic e Non-GME FHI1) [employer] [facility])(Fam tano Practice Non-GME FHI1) OUTPATIENT [id number] bp ck day 2 - iam pt YAMILET POMPA 05/08 Released w/o Limitations [employer] [facility])(F amily Practic e Non-GME FHI1) [facility] [employer] [facility])(Fam tano Practice Non-GME FHI2) OUTPATIENT [id number] blood pressur e-drBILLIE Earl 05/13 Released w/o Limitations [employer] [facility])(F amily Practic e Non-GME FHI2) [employer] [facility])(Fam tano Practice Non-GME FHI1) OUTPATIENT [id number] bp check-p BILLIE Schulte 05/14 Released w/o Limitations [facility])(F amily Practic e Non-GME FHI1) [facility])(Fam tano Practice Non-GME FHI1) OUTPATIENT [id number] 5th blood pressur e check-d BILLIE Pack 05/16 Released w/o Limitations [address] [place] [address] [employer] [facility])(F amily Practic e Non-GME FHI1) [address] [place] [address] [employer] [facility])([facility] Non-GME FHI1) TELE CONSULT [id number] lab results that were complet ed on 08 May 2007 KALE SINGER 05/[address] [place] [address] [place] B [facility])(F amily Practic e Non-GME FHI1) [address] [place] [address] [place] B [facility])([facility] Non-GME FHI1) OUTPATIENT [id number] persist ent cough DAYDYLAN. 12/18 Released w/o Limitations [address] [place] [address] [employer] [facility])(F amily Practic e Non-GME FHI1) [address] [place] [address] [employer] [facility])([facility] Non-GME FHI1) OUTPATIENT [id number] right knee pain NICOLE MALONE 01/02 Released w/o Limitations [address] [place] [address] [employer] [facility])(F amily Practic e Non-GME FHI1) [address] [place] [address] [employer] [facility])([facility] Non-GME FHI2) TELE CONSULT [id number] DYLAN MARINA 01/[address] [place] [address] [place] B [facility])(F amily Practic e Non-GME FHI2) [address] [place] [address] [employer] [facility])(Phy sical Therapy) OUTPATIENT [id number] joint pain, localiz ed in the knee ORION ALCARAZ 01/27 Released w/o Limitations [address] [place] [address] [employer] [facility])(P hysical Therapy ) [address] [place] [address] [employer] [facility])(Sco tt Internal Medicine Tm) OUTPATIENT [id number] POSSIBMaria E E ERON CASE 04/09 Released w/o Limitations [address] [place] [address] [employer] [facility])(S cott Interna l Medicin e Tm) [address] [place] [address] [employer] [facility])(Fam tano Practice Non-GME FHI2) TELE CONSULT [id number] Trinidad kim on SOCORRO Dominguez Dr. 04/[address] [place] [address] [place] ([facility])(F amily Practic e Non-GME FHI2) [address] [place] [address] [place] ([facility])(Sco tt [facility] FAM[facility] Tm Blue) OUTPATIENT [id number] ARMIN Samaniego 04/17 Released w/o Limitations [facility] [place] ([facility])(S cott [facility] Tm Blue) [address] [place] [address] [place] ([facility])(Fam tano Practice Non-GME FHI1) OUTPATIENT [id number] [facility]--we b based assessm ent NICOLE MALONE 06/11 Released w/o Limitations [facility] [place] ([facility])(F amily Practic e Non-GME FHI1) [address] [place] [address] [place] ([facility])(Opt ometry) OUTPATIENT [id number] routine eye exam HELDER MONSON 07/06 Released w/o Limitations [address] [place] [address] [place] ([facility])(O ptometr y) [address] [place] [address] [place] ([facility])(Fam tano Practice Non-GME FHI1) OUTPATIENT [id number] [facility]m [facility] NUHA CISNEROS 07/07 Released w/o Limitations [address] [place] [address] [place] ([facility])(F amily Practic e Non-GME FHI1) [facility] OUTPATIENT [id number] 08/29 Released w/o Limitations [facility] [address] [place] [address] [place] ([facility])(War rior Op Med Cln Tm A Ad) OUTPATIENT [id number] cough x 6 months and neck pain x3-4 weeks [phone] YAMILET POMPA 03/15 Released w/o Limitations [address] [place] [address] Group [place] ([facility])(W arrior Op Med Cln Tm A Ad) [facility] Medical [facility] [place] ([facility])(Phy sical Therapy) OUTPATIENT [id number] joint stiffne ss of the MICHELLE Jacobs 03/17 Released w/o Limitations [address] [place] [address] [place] ([facility])(P hysical Therapy ) [address] [place] [address] [place] ([facility])([facility]) OUTPATIENT [id number] [facility]-- a/pha(8 ) CISNEROSKADE BOWSERAUGUSTUS Sanderson 06/25 Released w/o Limitations [employer] [facility] ([facility])([facility]) [employer] [facility]War rior Op Med Cln Tm A Ad) TELE CONSULT [id number] stat referra l KALE JACOBS 10/07 [employer] [facility])(W arrior Op Med Cln Tm A Ad) [employer] [facility])(War rior Op Med Cln Tm A Ad) OUTPATIENT [id number] retirem ent physica l [phone] BILLIE DOBBS 12/06 Released w/o Limitations [employer] [facility])(W arrior Op Med Cln Tm A Ad) [employer] [facility])(War rior Op Med Cln Tm A Ad) TELE CONSULT [id number] Rad results KALE JACOBS 12/10 [facility]W arrior Op Med Cln Tm A Ad) Medical [facility])(Opt ometry) OUTPATIENT [id number] eye exam [phone] SAMARIA OZUNA 12/21 Released w/o Limitations [employer] [place])(O ptometr y) Medical [facility]War rior Op Med Cln Tm A Ad) OUTPATIENT [id number] phy. [phone] BILLIE DOBBS 12/27 Released w/o Limitations [facility]W arrior Op Med Cln Tm A Ad) Medical [facility])(Sco tt [facility] Team 3) TELE CONSULT [id number] X-ray results SCOTT GIL 12/30 [facility])(S cott [facility] Team 3) [facility] Medical [facility])(Aud iology) OUTPATIENT [id number] HEARING LOSS DENNIS TALBOT 01/14 Released w/o Limitations [employer] [facility])(A udiolog y) Medical [facility]War rior Op Med Cln Tm A Ad) OUTPATIENT [id number] f/u detal referra l for hyperte nsion BILLIE DOBBS 01/19 Released w/o Limitations [employer] [place] [facility] ([facility])(W arrior Op Med Cln Tm A Ad) [employer] [place] [facility] ([facility])(War rior Op Med Cln Tm A Ad) OUTPATIENT [id number] BP check #1 BILLIE DOBBS 01/25 Released w/o Limitations [employer] [place] [facility] ([facility])(W arrior Op Med Cln Tm A Ad) [employer] [place] [facility] ([facility])(War rior Op Med Cln Tm A Ad) OUTPATIENT [id number] BP check 2/5-Prateek andres BILLIE DOBBS 01/26 Released w/o Limitations [employer] [place] [facility] ([facility])(W arrior Op Med Cln Tm A Ad) [employer] [place] ([facility])(War rior Op Med Cln Tm A Ad) TELE CONSULT [id number] rad f/u DYLAN MARINA 01/28 [employer] [place] [facility] ([facility])(W arrior Op Med Cln Tm A Ad) [employer] [place] [facility] ([facility])(War rior Op Med Cln Tm A Ad) OUTPATIENT [id number] BP check 3/5 DYLAN OCASIO 02/03 Released w/o Limitations [employer] [place] ([facility])(W arrior Op Med Cln Tm A Ad) [employer] [place] [facility] ([facility])(War rior Op Med Cln Tm A Ad) OUTPATIENT [id number] BP check /5 BILLIE DOBBS 02/09 Released w/o Limitations [employer] [place] ([facility])(W arrior Op Med Cln Tm A Ad) [employer] [place] [facility] ([facility])(War rior Op Med Cln Tm A Ad) OUTPATIENT [id number] BP check /5 BILLIE DOBBS 02/10 Released w/o Limitations [employer] ([facility])(W arrior Op Med Cln Tm A Ad) [employer] [place] ([facility])(War rior Op Med Cln Tm A Ad) TELE CONSULT [id number] f/u appt - iam DYLAN MARINA Josafat 02/10 [employer] ([facility])(W arrior Op Med Cln Tm A Ad) [employer] ([facility])(War rior Op Med Cln Tm A Ad) TELE CONSULT [id number] PT loly JACOBS KALE 02/17 [employer] [place] ([facility])(W arrior Op Med Cln Tm A Ad) [facility] [employer] [place] [facility])(Phy sical Therapy) OUTPATIENT [id number] neck pain MICHELLE CALVERT 02/28 Released w/o Limitations [employer] [place] ([facility])(P hysical Therapy ) [facility] [employer] ([facility])(War rior Op Med Cln Tm A Ad) OUTPATIENT [id number] b/p follow up OCASIODYLANNE 03/02 Released w/o Limitations [employer] [place] ([facility])(W arrior Op Med Cln Tm A Ad) [facility] [employer] [place] ([facility])(Phy sical Therapy) OUTPATIENT [id number] ENRIKE MICHELLE L 03/07 Released w/o Limitations [employer] ([facility])(P hysical Therapy ) [facility] [employer] [facility] ([facility])(Phy sical Therapy) OUTPATIENT [id number] ENRIKE MICHELLE L 03/09 Released w/o Limitations [employer] ([facility])(P hysical Therapy ) [facility] [employer] [facility])(Phy sical Therapy) OUTPATIENT [id number] ENRIKE MICHELLE L 03/14 Released w/o Limitations [employer] ([facility])(P hysical Therapy ) [employer] ([facility])(Phy sical Therapy) OUTPATIENT [id number] ENRIKE MICHELLE L 03/16 Released w/o Limitations [employer] ([facility])(P hysical Therapy ) [employer] ([facility])(Phy sical Therapy) OUTPATIENT [id number] MICHELLE CALVERT 03/23 Released w/o Limitations [address] [place] [address] [place] [facility])(P hysical Therapy ) [address] [place] [address] [place] [facility])(Phy sical Therapy) OUTPATIENT [id number] MICHELLE CALVERT 03/25 Released w/o Limitations [address] [place] [address] [facility])(P hysical Therapy ) [address] [place] [address] [facility])(Phy sical Therapy) OUTPATIENT [id number] MICHELLE CALVERT 03/28 Released w/o Limitations [address] [place] [address])(P hysical Therapy ) [address] [place] [address])(War rior Op Med Cln Tm A Ad) TELE CONSULT [id number] Dr. Early ( Pulmono log) office called stating the patient needs a SOCORRO Rodriguez 05/[address] [place] [address])(W arrior Op Med Cln Tm A Ad) [address] [place] [address])(All ergy Resource Sharing) OUTPATIENT [id number] Pas entered the order JERICHO ROMERO 11/22 Released w/o Limitations [address] [place] [address])(A llergy Resourc e Sharing ) [address] [place] [address])(All ergy) TELE CONSULT [id number] CT result JERICHO ROMERO 12/[address] [place] [address])(A llergy) [address] [place] [address])(All ergy) TELE CONSULT [id number] discuss results JERICHO ROMERO 12/[address] [place] [address])(A llergy) [facility] Outpatient Encounter [id number] 03/22 [facility] Procedures Combined list of: 1) Procedures from Department of Veterans Affairs facilities going back up to thelast 18 months, not all VA non-surgical procedures are included; 2) All procedures from the Department of Defense facilities. Procedure Procedure Type Code Date Perfomer Comments Sourc e No data available for this section Ambulatory Pharmacy Modalities Heat Hot Packs Modalities Heat Hot Packs [id number] 010 MICHELLE CALVERT Modalities Traction Modalities Traction 12568 0 010 ENRIKE MICHELLE L Fermin Modalities Heat Hot Packs Modalities Heat Hot Packs 22583 010 HENRI PHAN DoD Modalities Traction Modalities Traction 62418 0 010 ANISHZEYHENRI L DoD Modalities Traction Modalities Traction 17556 0 010 MICHELLE CALVERT L DoD Modalities Heat Hot Packs Modalities Heat Hot Packs 02437 010 ENRIKE MICHELLE L Fermin Modalities Traction Modalities Traction 56715 0 010 ENRIKE MICHELLE L Fermin Modalities Heat Hot Packs Modalities Heat Hot Packs 71698 010 DUANEUDELELIA, MICHELLE L DoD Modalities Heat Hot Packs Modalities Heat Hot Packs 69088 010 ENRIKE MICHELLE L Fermin Modalities Traction Modalities Traction 96152 0 010 MICHELLE CALVERT Physical Therapy: ___ Se ion Segments, 15 Minutes Each Physical Therapy: ___ Session Segments, 15 Minutes Each [id number] 010 ALISON, JOHAN Cristobal Christensen Modalities Traction Modalities Traction 28977 0 010 ALISON, JOHAN W Fermin Physical Therapy: ___ Se ion Segments, 15 Minutes Each Physical Therapy: ___ Session Segments, 15 Minutes Each 77051 010 MICHELLE CALVERT Modalities Traction Modalities Traction 34083 0 010 MICHELLE CALVERT Physical Therapy: ___ Se ion Segments, 15 Minutes Each Physical Therapy: ___ Session Segments, 15 Minutes Each 63139 010 MICHELLE CALVERT Modalities Traction Modalities Traction 79496 0 010 MICHELLE CALVERT Physical Medicine Physical Therapy Evaluation Physical Medicine Physical Therapy Evaluation 11775 010 MICHELLE CALVERT Non-Physician Phone Call To Patient/Provider Brief (5-10min) Non-Physician Phone Call To Patient/Provider Brief (5-10min) [phone] KALE JACOBS Tympanometry With Reflex Threshold Measurements Tympanometry With Reflex Threshold Measurements 13610 010 DENNIS TALBOT Comprehensive Audiometry Comprehensive Audiometry 56224 010 DENNIS TALBOT Evoked Otoacoustic Kim ions Comprehensive 010 DENNIS TALBOT Ophthalmological Prior Patient Start Comprehensive Care Ophthalmological Prior Patient Start Comprehensive Care 13603 010 SAMARIA OZUNA Spectacles Services Fitting Monofocals (Not For Aphakia) Spectacles Services Fitting Monofocals (Not For Aphakia) 89480 010 SAMARIA OZUNA Determination Of Refractive State Determination Of Refractive State [phone] SAMARIA OZUNA Phys Therapy Education Self Care Training - Per 15 Minutes Phys Therapy Education Self Care Training - Per 15 Minutes 09653 009 MICHELLE CALVERT Physical Medicine Physical Therapy Evaluation Physical Medicine Physical Therapy Evaluation 73387 009 MICHELLE CALVERT Ophthalmological Prior Patient Start Comprehensive Care Ophthalmological Prior Patient Start Comprehensive Care 91867 008 HELDER MONSON [employer] Services Fitting Monofocals (Not For Aphakia) Spectacles Services Fitting Monofocals (Not For Aphakia) 29208 008 HELDER MONSON Determination Of Refractive State Determination Of Refractive State 24041 008 HELDER MONSON Physical Medicine Physical Therapy Evaluation Physical Medicine Physical Therapy Evaluation [phone] ORION ALCARAZ Ophthalmological Prior Patient Start Intermediate Level Care Ophthalmological Prior Patient Start Intermediate Level Care [phone] SAMARIA OZUNA Ophthalmological New Patient Start Intermediate Level Care Ophthalmological New Patient Start Intermediate Level Care 29133 006 SAMARIA OZUNA Paring / Curettage Of Benign Hyperkeratotic Lesion, Single Paring / Curettage Of Benign Hyperkeratotic Lesion, Single 01606 005 TASNEEM NAYLOR Destruction Of Benign Lesion By Cryosurgery 005 TASNEEM NAYLOR Dermatological Surgery Electrodesiccation & Curettage 005 KALE HAGEN Destruct Of Benign Lesion By Any Method Second Through 14 [address]Supervised Group Educational Services 004 FIDEL ARREOLA Physical Medicine - Group Physical Therapy [facility] Physical Medicine - Group Physical Therapy Session 14642 004 FIDEL ARREOLA EXCISION, BENIGN LESION INCLUDING MARGINS, EXCEPT SKIN TAG (UNLESS LISTED ELSEWHERE), SCALP, NECK, HANDS, FEET, GENITALIA; EXCISED DIAMETER 0.6 TO 1.0 CM 002 DoD APPLICATION OF A MODALITY TO 1 OR MORE AREAS; HOT OR COLD PACKS 010 DoD APPLICATION OF A MODALITY TO 1 OR MORE AREAS; HOT OR COLD PACKS 010 DoD APPLICATION OF A MODALITY TO 1 OR MORE AREAS; HOT OR COLD PACKS 010 DoD APPLICATION OF A MODALITY TO 1 OR MORE AREAS; HOT OR COLD PACKS 010 DoD APPLICATION OF A MODALITY TO 1 OR MORE AREAS; HOT OR COLD PACKS 010 DoD APPLICATION OF A MODALITY TO 1 OR MORE AREAS; HOT OR COLD PACKS 010 DoD APPLICATION OF A MODALITY TO 1 OR MORE AREAS; HOT OR COLD PACKS 010 DoD APPLICATION OF A MODALITY TO 1 OR MORE AREAS; TRACTION, MECHANICAL 010 DoD TELE ASSESS & MGT SRV PROV QUAL NONPHYS HLTH CARE PRO TO EST PAT,PARENT,GUARD NOT ORIG REL ASSESS & MGT SRV PROV W/IN PREV 7 DAYS NOR LEAD ASSESS & MGT SRV/PX W/IN NXT 24 HR/SOON APT;5-10 MIN MED DIS 010 DoD BLOOD PRESSURE MEASURED (CKD)(DM) 010 DoD BLOOD PRESSURE MEASURED (CKD)(DM) 010 DoD BLOOD PRESSURE MEASURED (CKD)(DM) 010 DoD TYMPANOMETRY AND REFLEX THRESHOLD MEASUREMENTS 010 DoD FITTING OF SPECTACLES, EXCEPT FOR APHAKIA; MONOFOCAL 010 DoD PHYSICAL THERAPY EVALUATION 009 DoD DETERMINATION OF REFRACTIVE STATE 008 DoD PHYSICAL THERAPY EVALUATION 008 [facility] OPHTHALMOLOGICAL SERVICES: MEDICAL EXAMINATION AND EVALUATION, WITH INITIATION OR CONTINUATION OF DIAGNOSTIC AND TREATMENT PROGRAM; INTERMEDIATE, ESTABLISHED PATIENT 006 DoD OPHTHALMOLOGICAL SERVICES: MEDICAL EXAMINATION AND EVALUATION WITH INITIATION OF DIAGNOSTIC AND TREATMENT PROGRAM; INTERMEDIATE, NEW PATIENT DoD DESTRUCTION (EG, LASER SURGERY, ELECTROSURGERY, CRYOSURGERY, CHEMOSURGERY, SURGICAL CURETTEMENT), PREMALIGNANT LESIONS (EG, ACTINIC KERATOSES); FIRST LESION DoD DESTRUCT (EG, LASER SURGERY, ELECTROSURGERY, CRYOSURGERY, CHEMOSURGERY, SURGICAL CURETTEMENT), PREMALIGNANT LESIONS (EG, ACTINIC KERATOSES); 2ND THRU 14 LESIONS, EA (LIST SEP ADDITION CD, 1ST LESION) 005 [facility] PHYS/OTH QUALIFIED HEALTH PAEDIATRIC PHYSIOTHERAPIST QUALIFIED,EDUCATION,T RAIN,LICENSURE/REGULA TION (WHEN APPLICABLE) EDUC SER RENDERED TO PATS IN A GRP SETTING (EG,,OBESITY, OR DIABETIC INSTRUCT) 004 [facility] Social History Combined list of available smoking, tobacco, and other social history from [facility] facilities. Social History Type Response Date Comment Sourc e This section is an empty social history section. DoD Assessment and Plan Combined list of future care activities from [facility] facilities (e.g., assessment and plan notes, appointments, orders, and referrals). Additional future care activities may be listed in the Plan of Care section. Result Assessment and Plan Date Source Assessment and Plan No data available for this section 04/30/2025 [facility] Functional Status Combined list of recent functional and cognitive assessments recorded at [facility] Functional [place] Measurement (FIM) Scale: 1 = Total Assistance (Subject = 0% +), 2 = Maximal Assistance (Subject = 25% +), 3 = Moderate Assistance (Subject = 50% +), 4 = Minimal Assistance (Subject = 75% +), 5 = Supervision, 6 = Modified [place] (Device), 7 = Complete [place] (Timely, Safely). Assessment Date/Time Source Assessment Type Assessment Skill Assessment Score Assessment Details No data available for this section
== END 2025-04-30 07:56 | disposition home or self-care (01) ==
LOC: ANHAUDIO 07:56
PROVIDERS: PCP Family Medicine; Visit Provider Physician Assistant Medical
DX: H90.3 Sensorineural hearing loss, bilateral (principal)
CPT/HCPCS: 92557; 92567